=== PATIENT | female | born 1965 | race Caucasian/White ===

== ENCOUNTER 2016-08-07 09:13 | Day surgery (SDC) | payer BC ==
[2016-08-07] MEDS ORDERED: LIDOCAINE 2% MDV (20MG/ML) 20ML VIAL IV ONE (14:00)
[2016-08-07] MEDS ORDERED: PROPOFOL 10 MG/ML VIAL IV ONE (14:00)
[2016-08-07] MEDS ORDERED: FENTANYL PF 100MCG/2ML VIAL IV ONE (14:00)
[2016-08-07] MEDS ORDERED: MIDAZOLAM HCL 2MG/2ML VIAL IV ONE (14:00)
--- NOTE | 2016-08-08 08:00 | Operative Note ---
DATE OF SURGERY: OPERATION: 1. ESOPHAGOGASTRODUODENOSCOPY with biopsy. 2. COLONOSCOPY with cold forceps polypectomy. PREOPERATIVE DIAGNOSIS: Right upper quadrant pain. POSTOPERATIVE DIAGNOSES: 1. Gastritis. 2. Ascending colon polyp, status post cold forceps removal. 3. Hypertrophied anal papilla. PROCEDURE: After informed consent was obtained from the patient, she was placed in the left lateral decubitus position in the endoscopy suite, sedated and monitored by the department of anesthesia. A well-lubricated [id number] gastroscope was placed in the posterior oropharynx and under direct visualization passed to the proximal esophagus. The endoscope was advanced through the proximal, mid, and distal esophagus. The GE junction and esophagus were unremarkable. The gastric body and the antrum were carefully inspected. There were a few flecks of heme and some mild patchy erythematous changes in the antrum. The pylorus, duodenal bulb, and sweep were unremarkable. J-turn views of the proximal stomach were unremarkable. The endoscope was straightened and antral biopsies were obtained. No excessive bleeding was noted. The endoscope was then retracted from the patient with no new findings or abnormalities identified. Digital rectal exam was unremarkable. A well-lubricated [id number] colonoscope was inserted into the rectum and advanced to the cecum and into the terminal ileum. Preparation quality was excellent. The terminal ileum and cecum were unremarkable. The ileocecal valve and appendiceal orifice were unremarkable. In the ascending colon, there was a diminutive polyp removed in piecemeal fashion with a cold forceps. Minimal bleeding was noted at the site. The remainder of the ascending colon, transverse colon, descending colon, sigmoid colon, and rectum were unremarkable. Forward and J-turn views of the rectum and anorectum were unremarkable other than a hypertrophied anal papilla being noted. The endoscope was straightened, the rectal ampulla deflated, and the endoscope was removed. RECOMMENDATIONS: The patient should resume her Robinul. She will require repeat colonoscopy in 5-10 years pending tissue histology. As always, thank you for allowing me to participate in the healthcare of your patients. Arturo Marquez DO CC: Dr. Elizabeth NAGEL
== END 2016-08-07 11:38 | disposition home or self-care (01) ==
LOC: HOP 09:13
PROVIDERS: ATTEND Internal Medicine Gastroenterology
DX: K29.70 Gastritis, unspecified, without bleeding (principal); D12.2 Benign neoplasm of ascending colon; K62.89 Other specified diseases of anus and rectum
CPT/HCPCS: 43239; 45380; 00740; J3010

== ENCOUNTER 2016-12-05 07:12 | Day surgery (SDC) | payer BC ==
[~2016-12-05 07:12] MED LIST: ACETAMINOPHEN 1000MG/100 ML PREMIX IV ONE
[2016-12-05] MEDS ORDERED: FENTANYL PF 100MCG/2ML VIAL IV ONE (13:22)
[2016-12-05] MEDS ORDERED: LIDOCAINE 2% MDV (20MG/ML) 20ML VIAL IV ONE (13:22)
[2016-12-05] MEDS ORDERED: PROPOFOL 10 MG/ML VIAL IV ONE (13:22)
[2016-12-05] MEDS ORDERED: SEVOFLURANE 250 ML INH ONE (13:22)
[2016-12-05] MEDS ORDERED: MIDAZOLAM HCL 2MG/2ML VIAL IV ONE (13:22)
[2016-12-05] MEDS ORDERED: KETOROLAC 30 MG/ML VIAL IVP ONE (13:22)
[2016-12-05] MEDS ORDERED: OXYCODONE HCL/APAP 5MG/325MG TABLET PO ONE (13:22)
[2016-12-05] MEDS ORDERED: ONDANSETRON HCL IV 4 MG/2 ML VIAL IVP ONE (13:22)
--- NOTE | 2016-12-05 16:40 | Operative Note ---
DATE OF SURGERY: 12/05/2016 Surgeon: Darnell Gray DO Referring physician: Henrique Johnson MD PREOPERATIVE DIAGNOSIS: Carpal tunnel syndrome of the right wrist. POSTOPERATIVE DIAGNOSIS: Carpal tunnel syndrome of the right wrist. OPERATION: Decompression of the right median nerve of the wrist using 3.5 loupe magnification. Anesthesia: General. PROCEDURE: This 51-year-old female was taken to the operating room and placed in the supine position on the operating room table, general anesthesia was induced. The right upper extremity was elevated, prepped with Hibiclens and draped in the usual sterile fashion. It was exsanguinated and the tourniquet inflated to 250 mmHg. A palmar incision was utilized following the hypothenar crease on the level of the base of the web space of the thumb in the flexor crease of the wrist and dissection was carried down through the skin and subcutaneous tissue, followed by dividing the palmar fascia in line with the skin incision. The flexor retinaculum was easily identified, punctured, split to its proximal margin, and then with the contents of the carpal tunnel under direct vision, the transverse carpal ligament was transected along its ulnar border. The radial flap was raised to expose the entire median nerve under the transverse carpal ligament. The recurrent motor branch of the median nerve was easily identified and found to be intact. There was mild narrowing and mild hyperemia of the median nerve under the transverse carpal ligament. Thickening of the tenosynovium was also present. The wound was then irrigated. Hemostasis obtained after the tourniquet was released. The wound closed with interrupted 6-0 nylon suture. Sterile dressings were applied with plaster splint immobilization with the wrist in slight dorsiflexion with the thumb in an adducted position. [facility]
== END 2016-12-05 10:10 | disposition home or self-care (01) ==
LOC: SUR 07:12
PROVIDERS: ATTEND Orthopaedic Surgery
DX: G56.01 Carpal tunnel syndrome, right upper limb (principal); G56.21 Lesion of ulnar nerve, right upper limb
CPT/HCPCS: 64721; 01810; J1885; J2405; J3010